=== PATIENT | female | born 1970 | race Asian ===

== ENCOUNTER 2021-06-25 07:19 | Emergency (ER) | payer MEDICAID, OTHER ==
[~2021-06-25] VITALS: Ht 157.5 cm; Wt 56.8 kg
[2021-06-25] MEDS ORDERED: DICYCLOMINE HCL 20 MG TABLET PO ONE (08:00)
[2021-06-25] MEDS ORDERED: SODIUM CHLORIDE 0.9% 1,000 ML IV ONE (08:00)
[2021-06-25] MEDS ORDERED: ONDANSETRON HCL 4 MG/2 ML VIAL IVP ONE (08:00)
[2021-06-25 08:06] LABS: BASOPHILS % (AUTO) 0.5 % (0.0-2.0); EOSINOPHILS % (AUTO) 0.4 % (1.0-6.0); HEMATOCRIT 41.3 % (36-46); HEMOGLOBIN 14.1 g/dL (12.0-16.0); LYMPHOCYTES # (AUTO) 1.4 K/uL (1.0-4.8); LYMPHOCYTES % (AUTO) 14.3 % (22.0-44.0); MEAN CORPUSCULAR HEMOGLOBIN 29.3 pg (26.0-34.0); MEAN CORPUSCULAR HGB CONC 34.3 G/dL (31.0-37.0); MEAN CORPUSCULAR VOLUME 86 fL (80-100); MONOCYTES # (AUTO) 0.6 K/uL (0.1-1.0); MONOCYTES % (AUTO) 5.8 % (2.0-9.0); NEUTROPHILS # (AUTO) 7.7 K/uL (1.8-7.7); PLATELET COUNT (AUTO) 314 K/uL (150-450); RED BLOOD CELL COUNT(AUTO) 4.82 MIL/uL (4.00-5.20); RED CELL DISTRIBUTION WIDTH 12.5 % (11.5-14.5)
[2021-06-25 08:14] LABS: ANION GAP 8 mmol/L (8-16); CARBON DIOXIDE 29 mmol/L (22-29); CHLORIDE 100 mmol/L (98-107); GLUCOSE,RANDOM 136 mg/dL (70-110); POTASSIUM 3.4 mmol/L (3.5-5.1); SODIUM SERUM 137 mmol/L (136-145); UREA NITROGEN, BLOOD 10 mg/dL (7-18)
[2021-06-25 08:15] LABS: CALCIUM, TOTAL 9.3 mg/dL (8.8-10.5); GLOMERULAR FILTR. RATE CALC > 60 mL/min (>60)
[2021-06-25 08:21] LABS: ALANINE AMINOTRANSFERASE 27 U/L (12-78); ALBUMIN 4.2 g/dL (3.4-5.0); ALKALINE PHOSPHATASE 111 U/L (46-116); ASPARTATE AMINOTRANSFERASE 18 U/L (15-37); BILIRUBIN,TOTAL 0.7 mg/dL (0.1-1.0); LIPASE 127 U/L (73-393); TOTAL PROTEIN, SERUM 8.5 g/dL (6.4-8.2)
[2021-06-25] MEDS ORDERED: MORPHINE SULFATE 2 MG/ML SYRINGE IVP ONE (09:00)
[2021-06-25] MEDS ORDERED: IOHEXOL 350 MG/ML 100 ML VIAL ONE (09:04)
[2021-06-25] MEDS ORDERED: SODIUM CHLORIDE 0.9% 100 ML ONE (09:04)
[2021-06-25] MEDS ORDERED: AMOX1TAB16 PO (11:24)
[2021-06-25] MEDS ORDERED: AMOX TR/POT CLAV 875 MG/125 MG TABLET PO ONE (11:45)
[2021-06-25 11:52] VITALS: BP 99/60
== END 2021-06-25 12:02 | disposition home or self-care (01) ==
LOC: EMS 07:27
DX: K52.9 Noninfective gastroenteritis and colitis, unspecified (principal); E11.9 Type 2 diabetes mellitus without complications; I10 Essential (primary) hypertension; E78.00 Pure hypercholesterolemia, unspecified
CPT/HCPCS: 36415; 74177; 80053; 83690; 85025; 96374; 96375; 99285; J2270; J2405; J7030; J7050; Q9967

== ENCOUNTER 2021-12-03 04:48 | Emergency (ER) | payer MEDICAID, OTHER ==
[~2021-12-03] VITALS: Ht 162.6 cm; Wt 59.1 kg
[~2021-12-03 04:48] MED LIST: AMOX1TAB16 PO
[2021-12-03] MEDS ORDERED: PERM60CR19 TP (07:55)
[2021-12-03] MEDS ORDERED: DIPH25 PO (07:57)
[2021-12-03 08:29] VITALS: BP 140/78
== END 2021-12-03 08:32 | disposition home or self-care (01) ==
LOC: EMS 04:49
DX: B86 Scabies (principal); F41.9 Anxiety disorder, unspecified; I10 Essential (primary) hypertension; E11.9 Type 2 diabetes mellitus without complications; E78.00 Pure hypercholesterolemia, unspecified
CPT/HCPCS: 99282; Z7502

== ENCOUNTER 2022-11-19 18:28 | Emergency (ER) | payer MEDICAID, OTHER ==
[~2022-11-19] VITALS: Ht 157.5 cm; Wt 53.6 kg
[~2022-11-19 18:28] MED LIST changes: -AMOX1TAB16 PO; +DIPH-1243 PO; +PERM60CR19 TP
[2022-11-19 18:31] VITALS: TEMP 98.1
[2022-11-19] MEDS ORDERED: AMLO10TA55 PO (18:34)
[2022-11-19] MEDS ORDERED: METF-444 PO (18:34)
[2022-11-19] MEDS ORDERED: CETI10TA58 PO (18:34)
[2022-11-19] MEDS ORDERED: FAMO20TA8 PO (18:34)
[2022-11-19 21:09] VITALS: BP 127/79; PULSE 77; RESP 16
== END 2022-11-19 21:15 | disposition home or self-care (01) ==
LOC: EMS 18:30
DX: S00.83XA Contusion of other part of head, initial encounter (principal); E11.9 Type 2 diabetes mellitus without complications; E78.00 Pure hypercholesterolemia, unspecified; I10 Essential (primary) hypertension; Y04.8XXA Assault by other bodily force, initial encounter; Y93.89 Activity, other specified; Y92.89 Other specified places as the place of occurrence of the external cause; Y99.8 Other external cause status
CPT/HCPCS: 70486; 82962; 99284